=== PATIENT | female | born 1990 | race American Indian/Alaskan Native ===

== ENCOUNTER 2017-04-11 12:56 | Emergency (ER) | payer MEDICAID ==
--- NOTE | 2017-04-11 13:26 | Emergency Department Report ---
Chief Complaint: Abdominal Pain Stated Complaint: ABD PAIN/BUTT PAIN/DIFF URINATING Time Seen by Provider: 04/11/17 13:23 - HPI History of Present Illness: PT c/o abd pain since last night - ROS Review of Systems: + constipation + lower abd pain + nausea - discharge unsure when lmp - Exam Vital Signs: Vital Signs 04/11/17 13:10 Temperature 98.6 F Pulse Rate 107 H Respiratory 18 Rate Blood Pressure 115/69 O2 Sat by Pulse 100 Oximetry Physical Exam: thin female, no acute distress but appears in pain + abd tenderness + bs x 4 MSE screening note: Focused history and physical exam performed. Due to findings the following was ordered: labs ED Disposition for MSE Condition: Stable Instructions: Abdominal Pain (ED)
[2017-04-11 13:55] LABS: Basophils % (Auto) 0.2 % (0.0-1.8); Hematocrit 35.3 % (30.3-42.9); Hemoglobin 11.7 gm/dl (10.1-14.3); Mean Corpuscular HGB Conc 33 % (30-34); Mean Corpuscular Hemoglobin 27 pg (28-32); Mean Corpuscular Volume 82 fl (79-97); Platelet Count 347 K/mm3 (140-440); Red Blood Count 4.28 M/mm3 (3.65-5.03); Red Cell Distribution Width 13.6 % (13.2-15.2); White Blood Count 10.1 K/mm3 (4.5-11.0)
[2017-04-11] MEDS ORDERED: TYLENOL PO ONE (13:59)
--- NOTE | 2017-04-11 13:59 | Emergency Department Report ---
ED General Adult HPI - General Chief complaint: Abdominal Pain Stated complaint: ABD PAIN/BUTT PAIN/DIFF URINATING Time Seen by Provider: 04/11/17 13:23 Source: patient, RN notes reviewed Mode of arrival: Ambulatory Limitations: No Limitations - History of Present Illness Initial comments: This is a 26-year-old female. She is previously unknown to me. She does not have a primary care doctor. She denies chronic medical conditions. She reports a past medical history of asthma, but no history of abdominal surgeries. The patient presents to the ER complaining of lower abdominal pain. The pain started last night. It decreases when she sleeps and lays in a supine position. Increases when she walks. She denies nausea, vomiting, diarrhea. She reports constipation. She denies dysuria, denies vaginal bleeding, denies pelvic pain, but reports that she has some rectal pain with attempting to defecate. -: Gradual Radiation: abdomen Quality: aching Consistency: intermittent Improves with: rest Worsens with: movement Associated Symptoms: loss of appetite. denies: confusion, chest pain, cough, diaphoresis, shortness of breath, syncope, weakness - Related Data Previous Rx's Medication Instructions Recorded Last Taken Type Dicyclomine [Bentyl] 10 mg PO QID PRN #20 capsule 04/11/17 Unknown Rx Ondansetron [Zofran Odt] 4 mg PO QID PRN #20 tab.rapdis 04/11/17 Unknown Rx Polyethylene Glycol 3350 [Miralax 17 gm PO QDAY #30 packet 04/11/17 Unknown Rx 3350] Allergies Allergy/AdvReac Type Severity Reaction Status Date / Time No Known Allergies Allergy Unverified 04/11/17 14:51 ED Review of Systems ROS: Stated complaint: ABD PAIN/BUTT PAIN/DIFF URINATING Other details as noted in HPI ED Past Medical Hx - Past Medical History Previous Medical History?: No - Surgical History Past Surgical History?: No - Social History Smoking Status: Never Smoker Substance Use Type: None - Medications Home Medications: Home Medications Medication Instructions Recorded Confirmed Last Taken Type Dicyclomine [Bentyl] 10 mg PO QID PRN #20 capsule 04/11/17 Unknown Rx Ondansetron [Zofran Odt] 4 mg PO QID PRN #20 tab.rapdis 04/11/17 Unknown Rx Polyethylene Glycol 3350 [Miralax 17 gm PO QDAY #30 packet 04/11/17 Unknown Rx 3760] ED Physical Exam - General Limitations: No Limitations General appearance: alert, in no apparent distress - Head Head exam: Present: atraumatic, normocephalic - Eye Eye exam: Present: normal appearance, EOMI. Absent: nystagmus - ENT ENT exam: Present: normal exam, normal orophraynx, mucous membranes moist, normal external ear exam - Neck Neck exam: Present: normal inspection, full ROM. Absent: tenderness, meningismus - Respiratory Respiratory exam: Present: normal lung sounds bilaterally. Absent: respiratory distress, wheezes, rales, rhonchi, stridor, chest wall tenderness, accessory muscle use, decreased breath sounds, prolonged expiratory - Cardiovascular Cardiovascular Exam: Present: normal rhythm, tachycardia, normal heart sounds. Absent: systolic murmur, diastolic murmur, rubs, gallop - GI/Abdominal GI/Abdominal exam: Present: soft, tenderness, normal bowel sounds, other (there is suprapubic and left lower quadrant tenderness, there is no rebound, guarding or peritoneal signs). Absent: distended, guarding, rebound, rigid, pulsatile mass - Rectal Rectal exam: Present: normal inspection (escorted byNATALIE Garcia), other ( patient declined internal rectal examination. There is no perineum tenderness) - External exam: Present: normal external exam Speculum exam: Absent: cervical discharge, vaginal bleeding Bi-manual exam: Present: uterine tenderness, other (escorted by GLENIS Kapoor). Absent: adnexal mass - Extremities Exam Extremities exam: Present: normal inspection, full ROM, normal capillary refill. Absent: pedal edema, joint swelling, calf tenderness - Back Exam Back exam: Present: normal inspection, full ROM. Absent: tenderness, CVA tenderness (R), CVA tenderness (L), muscle spasm, paraspinal tenderness, vertebral tenderness - Neurological Exam Neurological exam: Present: alert, oriented X3, normal gait, other (Extraocular movements intact. Tongue midline. No facial droop. Facial sensation intact to light touch in the V1, V2, V3 distribution bilaterally. 5 and 5 strength in 4 extremities.. Sensation is intact to light touch in 4 extremities.). Absent : motor sensory deficit - Psychiatric Psychiatric exam: Present: normal affect, normal mood - Skin Skin exam: Present: warm, dry, intact, normal color. Absent: rash ED Course Vital Signs 04/11/17 04/11/17 04/11/17 13:10 13:35 16:31 Temperature 98.6 F 98.4 F Pulse Rate 107 H 92 H Respiratory 18 18 18 Rate Blood Pressure 115/69 Blood Pressure 111/64 [Left] O2 Sat by Pulse 100 99 99 Oximetry - Reevaluation(s) Reevaluation #1: 04/11/17 16:37 patient feels improved. She is tolerating liquid feeds. Tachycardia resolved. Patient will be discharged. Return precautions are reviewed. ED Medical Decision Making - Lab Data Result diagrams: 04/11/17 13:39 04/11/17 13:39 Vital Signs 04/11/17 13:10 Temperature 98.6 F Pulse Rate 107 H Respiratory 18 Rate Blood Pressure 115/69 O2 Sat by Pulse 100 Oximetry Lab Results 04/11/17 04/11/17 04/11/17 Range/Units 13:39 13:39 13:39 WBC 10.1 (4.5-11.0) K/mm3 RBC 4.28 (3.65-5.03) M/mm3 Hgb 11.7 (10.1-14.3) gm/dl Hct 35.3 (30.3-42.9) % MCV 82 (79-97) fl MCH 27 L (28-32) pg MCHC 33 (30-34) % RDW 13.6 (13.2-15.2) % Plt Count 347 (140-440) K/mm3 Lymph % (Auto) 5.7 L (13.4-35.0) % [place] % (Auto) 4.9 (0.0-7.3) % Eos % (Auto) 0.0 (0.0-4.3) % Baso % (Auto) 0.2 (0.0-1.8) % Lymph # 0.6 L (1.2-5.4) K/mm3 [place] # 0.5 (0.0-0.8) K/mm3 Eos # 0.0 (0.0-0.4) K/mm3 Baso # 0.0 (0.0-0.1) K/mm3 Seg Neutrophils % 89.2 H (40.0-70.0) % Seg Neutrophils # 9.0 H (1.8-7.7) K/mm3 Sodium 135 L (137-145) mmol/L Potassium 3.8 (3.6-5.0) mmol/L Chloride 98.6 (98-107) mmol/L Carbon Dioxide 20 L (22-30) mmol/L Anion Gap 20 mmol/L BUN 12 (7-17) mg/dL Creatinine 0.7 (0.7-1.2) mg/dL Estimated GFR > 60 ml/min BUN/Creatinine Ratio 17.14 % Glucose 147 H (65-100) mg/dL Calcium 8.7 (8.4-10.2) mg/dL Total Bilirubin 0.80 (0.1-1.2) mg/dL AST 13 (5-40) units/L ALT 9 (7-56) units/L Alkaline Phosphatase 36 (35-129) units/L Total Protein 7.5 (6.3-8.2) g/dL Albumin 4.3 (3.9-5) g/dL Albumin/Globulin Ratio 1.3 % Lipase 22 (13-60) units/L HCG, Qual Negative (Negative) - Radiology Data Radiology results: image reviewed interpreted by me: X-ray of the abdomen suggests constipation. X-ray of the abdomen and pelvis suggests constipation - Medical Decision Making differential diagnosis: Urinary retention, constipation, urinary tract infection Assessment and plan: 26-year-old female with lower abdominal pain, most likely constipation. She is afebrile, with reassuring vital signs, walks with a steady gait. Abdominal x-ray suggests constipation. She is somewhat tachycardic. This may be secondary to pain. She is tolerating liquid feeds. We will urinalysis, we will perform rectal and gynecologic examination. Critical care attestation.: If time is entered above; I have spent that time in minutes in the direct care of this critically ill patient, excluding procedure time. ED Disposition Clinical Impression: Abdominal pain Disposition: DC-01 TO HOME OR SELFCARE Is pt being admited?: No Does the pt Need Aspirin: No Condition: Stable Instructions: Constipation (ED), High Fiber Diet (ED) Additional Instructions: Cultures were sent today, results will be available in the next 3-5 days. Please have a primary care doctor or screen roller contact the medical records department to obtain culture results. Follow up with your primary care doctor or screen roller within the next 2-3 weeks. Drink plenty of water, 6-8 cups of water per day. Eat plenty of green leafy vegetables, and drink plenty of fiber. Return to the ER right away with new pain, worsened pain, migration of pain, fevers, chills, chest pain, shortness of breath, confusion, no nausea or vomiting, inability to tolerate liquid feeds. Referrals: PRIMARY CARE, [Primary Care Provider] - 3-5 Days DEENA BLACKWELL MD [Staff Physician] - 3-5 Days ZANA SULLIVAN MD [Staff Physician] - 3-5 Days
[2017-04-11 14:13] LABS: Alanine Aminotransferase 9 units/L (7-56); Albumin 4.3 g/dL (3.9-5); Albumin/Globulin Ratio 1.3 %; Alkaline Phosphatase 36 units/L (35-129); Anion Gap 20 mmol/L; BUN/Creatinine Ratio 17.14; Blood Urea Nitrogen 12 mg/dL (7-17); Calcium 8.7 mg/dL (8.4-10.2); Carbon Dioxide 20 mmol/L (22-30); Chloride 98.6 mmol/L (98-107); Glucose 147 mg/dL (65-100); Lipase 22 units/L (13-60); Potassium 3.8 mmol/L (3.6-5.0); Sodium 135 mmol/L (137-145); Total Protein 7.5 g/dL (6.3-8.2)
[2017-04-11] MEDS ORDERED: ALUM-MAG HYDROX-SIMETH 200-200-20MG/5ML PO ONE (14:26)
[2017-04-11] MEDS ORDERED: CARAFATE PO ONE (14:26)
[2017-04-11] MEDS ORDERED: MORPHINE IM ONE (15:56)
[2017-04-11 16:11] LABS: Bilirubin,Urine NEG (Negative); Blood,Urine NEG (Negative); Ketones,Urine TR mg/dL (Negative); Leukocyte Esterase,Urine NEG (Negative); Mucus,Urine 2+ /HPF; Nitrite,Urine NEG (Negative); Urobilinogen,Urine < 2.0 mg/dL (<2.0)
[2017-04-11 16:31] VITALS: BP 111/64
--- NOTE | 2017-04-12 07:20 | XRay Report ---
ABDOMEN, 2 views: History: Abdominal pain. There is no evidence of free air beneath the diaphragms. The gas pattern within the abdomen is unremarkable. There is no evidence of bowel dilatation, significant air-fluid levels, or pathologic calcifications. Organ shadows are unremarkable. IMPRESSION: Unremarkable abdomen.
== END 2017-04-11 17:00 | disposition home or self-care (01) ==
LOC: ED 12:56
DX: R10.32 Left lower quadrant pain (principal)
CPT/HCPCS: 36415; 74020; 80053; 81001; 83690; 84703; 85025; 87210; 87591

== ENCOUNTER 2017-05-28 18:26 | Emergency (ER) | payer MEDICAID ==
[2017-05-28] MEDS ORDERED: FLEXERIL PO ONE (23:18)
[2017-05-28] MEDS ORDERED: NORCO 5/325 PO ONE (23:18)
--- NOTE | 2017-05-29 00:06 | Cat Scan Report ---
FINAL REPORT PROCEDURE: CT HEAD/BRAIN WO CON TECHNIQUE: Computerized tomography of the head was performed without contrast material. HISTORY: trauma to head, headache COMPARISON: No prior studies are available for comparison. FINDINGS: Skull and scalp: Normal. Paranasal sinuses: Normal. Ventricles and subarachnoid spaces: Normal. Cerebrum: No evidence of hemorrhage, acute infarction or mass . Cerebellum and brainstem: No evidence of hemorrhage, acute infarction or mass. Vasculature: Normal. Comments: None. IMPRESSION: There is no evidence of an acute intracranial process.
--- NOTE | 2017-05-29 00:07 | Cat Scan Report ---
FINAL REPORT PROCEDURE: CT CERVICAL SPINE WO CON TECHNIQUE: Computerized tomography of the cervical spine was performed from the skull base to T1 without contrast material. HISTORY: trauma to head, headache, neck pain COMPARISON: No prior studies are available for comparison. FINDINGS: The alignment of the vertebral segments is normal. The heights of the vertebral bodies and the disc spaces are maintained. No acute fracture or dislocation of the cervical spine. The spinal canal is adequate at all levels. The visualized portion of the airway is patent. IMPRESSION: Normal evaluation of the cervical spine..
--- NOTE | 2017-05-29 00:15 | Emergency Department Report ---
Head Injury w/o Laceration - HPI Chief Complaint: Head Injury Stated Complaint: BOXES FELL ON HEAD Occurred When: Today Mechanism: Direct Blow Location: Frontal, Temporal, Parietal, Occipital, Other (posterior neck) Severity: mild Head Inj w/o Lac: Yes Headache, Yes Bruising, No Loss of Consciousness, No Nausea, No Blurred Vision, No Altered Mental Status, No Focal Deficit, No Swelling, No Break in Skin, No Bleeding Other History: 26 year old female presents to ED with headache and neck pain after trauma. patient states she was at work (works for [employer]) and states very large heavy supply filled boxes fell on top of her head and neck. patient denies LOC. patient is stable, neurologically intact and in no acute distress. patient is ambulatory and alert to person place time and self. ED General PMH - Past Medical History General Medical History: no medical history LMP (females 10-50): 1 month - Family History Significant Family History: no pertinent family hx - Social History Smoking Status: Never Smoker ED Neuro ROS - Review of Systems Constitutional: no symptoms reported Eyes (ROS): no symptoms reported Ears, Nose, Mouth, Throat: no symptoms reported Respiratory: no symptoms reported Cardiology: no symptoms reported Gastrointestinal/Abdominal: no symptoms reported Genitourinary: no symptoms reported Musculoskeletal: no symptoms reported Skin: no symptoms reported Neurological: headache. denies: cognitive dysfunction, numbness, tingling, tonic-clonic seizures, unable to move lower ext, unable to move upper ext, weakness Endocrine: no symptoms reported Hematologic/Lymphatic: no symptoms reported Head Injury W/O Lac Exam - Exam General: Vital signs noted. No distress. Alert and acting appropriately. Head: Yes Pupils are PERRL, Yes Hematoma/Ecchymosis (mild bruising to posterior head and neck), No Hemotympanum, No Epistaxis, No Stepoff/Deformity, No Laceration, No Abrasion Chest, Abd, & Ext: Yes Neck Pain, Yes Clear Lung Sounds, Yes Regular Heart Rhythm, No Chest Injury/Pain, No Abdominal Tenderness, No Back Tenderness, No Extremity Injury Neuroligical (Head Inj W/O Lac: Yes Normal Speech, Yes Normal Gait, No Lethargy , No Disorientation, No Focal Numbness, No Focal Weakness Exam: CT brain/cspine. no evidence of an acute intracranial process. Normal evaluation of the cervical spine. ED Disposition Clinical Impression: Headache due to trauma Qualifiers: Headache chronicity pattern: acute headache Intractability: not intractable Qualified Code(s): G44.319 - Acute post-traumatic headache, not intractable Disposition: DC-01 TO HOME OR SELFCARE Is pt being admited?: No Does the pt Need Aspirin: No Condition: Stable Instructions: Acute Headache (ED) Prescriptions: Meloxicam [Mobic] 7.5 mg PO QDAY #5 tablet methOCARBAMOL [Robaxin TAB] 500 mg PO TID #15 tab Referrals: PRIMARY CARE, [Primary Care Provider] - 3-5 Days Forms: Work/School Release Form(ED)
[2017-05-29 01:32] VITALS: BP 107/71
== END 2017-05-29 00:35 | disposition home or self-care (01) ==
LOC: ED 18:26
DX: R51 Headache (principal); M54.2 Cervicalgia
CPT/HCPCS: 70450; 72125; 81025; 99284